=== PATIENT | female | born 1985 | race African-American/Black ===

== ENCOUNTER 2017-06-08 11:34 | Emergency (ER) | payer MEDICAID ==
[~2017-06-08] VITALS: Ht 167.6 cm; Wt 55.0 kg
[2017-06-08] MEDS ORDERED: SODIUM CHLORIDE 0.9% 1,000 ML IV ONE (12:44)
[2017-06-08] MEDS ORDERED: KETOROLAC 30MG/ML VIAL IV STA (12:44)
[2017-06-08] MEDS ORDERED: ONDANSETRON HCL 4MG/2ML VIAL IV STA (12:44)
[2017-06-08] MEDS ORDERED: FAMOTIDINE 20MG/2ML VIAL IV ONE (12:45)
[2017-06-08 13:13] LABS: BASOPHILS % 0.9 % (0.0-2.0); EOSINOPHILS % 1.1 % (0.0-5.0); HEMATOCRIT. 40.6 % (36.0-48.0); HEMOGLOBIN. 13.2 g/dL (12.0-16.0); LYMPHOCYTES % 33.5 % (20.0-50.0); MEAN CORPUSCULAR VOLUME 86.1 fL (81.0-99.0); MEAN PLATELET VOLUME 8.4 fl (7.4-10.4); MONOCYTES % 3.5 % (2.0-8.0); PLATELET 333 x1000/uL (130-400); RED BLOOD CELL COUNT 4.72 mill/uL (4.2-5.4); RED CELL DISTRIBUTION WIDTH 14.3 % (11.6-14.6)
[2017-06-08 13:24] LABS: CHLORIDE 100 mEq/L (98-107)
[2017-06-08] MEDS ORDERED: METOCLOPRAMIDE HCL 10MG/2ML VIAL IV ONE (15:15)
[2017-06-08 16:41] LABS: CLARITY URINE CLEAR (CLEAR); COLOR URINE YELLOW (YELLOW); KETONES URINE 3+ (NEGATIVE); LEUKOCYTE ESTERASE URINE NEGATIVE (NEGATIVE); NITRITE URINE NEGATIVE (NEGATIVE); OCCULT BLOOD URINE 1+ (NEGATIVE); PH URINE 5.5 (4.5-8.0); PROTEIN URINE 3+ (NEGATIVE); SPECIFIC GRAVITY URINE 1.029 (1.005-1.030); UROBILINOGEN URINE 0.2 E.U./dL (0.2-1.0)
[2017-06-08 17:15] LABS: *AMPHETAMINES SCREEN URINE NEGATIVE (NEGATIVE); *BARBITURATES SCREEN URINE NEGATIVE (NEGATIVE); *BENZODIAZEPINES SCREEN URINE NEGATIVE (NEGATIVE); *COCAINE SCREEN URINE NEGATIVE (NEGATIVE); METHADONE URINE SCREEN NEGATIVE (NEGATIVE); OPIATES URINE SCREEN NEGATIVE (NEGATIVE); PHENCYCLIDINE URINE SCREEN NEGATIVE (NEGATIVE)
[2017-06-08 17:17] LABS: CANNABINOID URINE SCREEN PRESUMTIVE POSITIVE (NEGATIVE)
[2017-06-08 18:55] VITALS: BP 111/81
== END 2017-06-08 19:32 | disposition home or self-care (01) ==
LOC: ER 12:35
DX: R10.9 Unspecified abdominal pain (principal); R11.2 Nausea with vomiting, unspecified; R19.7 Diarrhea, unspecified; E10.65 Type 1 diabetes mellitus with hyperglycemia; Z79.4 Long term (current) use of insulin
CPT/HCPCS: 36415; 80053; 80305; 81003; 81025; 82010; 83690; 85025; 96361; 96374; 96375; 99284; J1885; J2405; J2765; J3490; J7030; Z7610

== ENCOUNTER 2018-09-21 10:29 | Inpatient (IN) | payer MEDICAID, MEDICARE ==
[~2018-09-21] VITALS: Ht 167.6 cm; Wt 60.6 kg
[2018-09-21] MEDS ORDERED: SODIUM CHLORIDE 0.9% 1,000 ML IV ONE (11:10)
[2018-09-21] MEDS ORDERED: ONDANSETRON HCL 4MG/2ML INJ IV STA (11:10)
[2018-09-21] MEDS ORDERED: MORPHINE SULFATE 4 MG/ML CPJ (NOT FOR IM USE) IV STA (11:10)
[2018-09-21] MEDS ORDERED: SODIUM CHLORIDE 0.9% 1000ML BAG (SEPSIS BOLUS) IV ONE (11:15)
[2018-09-21 12:03] LABS: CLARITY URINE CLEAR (CLEAR); COLOR URINE YELLOW (YELLOW); KETONES URINE 1+ (NEGATIVE); LEUKOCYTE ESTERASE URINE NEGATIVE (NEGATIVE); NITRITE URINE NEGATIVE (NEGATIVE); OCCULT BLOOD URINE TRACE (NEGATIVE); PH URINE 5.5 (4.5-8.0); PROTEIN URINE 2+ (NEGATIVE); SPECIFIC GRAVITY URINE 1.035 (1.005-1.030); UROBILINOGEN URINE 0.2 E.U./dL (0.2-1.0)
[2018-09-21 12:07] LABS: BG BASE EXCESS -6.2 mmol/L (-2.0-2.0); BG CARBOXYHEMOGLOBIN 0.8 % (0.5-1.5); BG DEOXYHEMOGLOBIN 4.5 % (0.0-5.0); BG HCO3 ACT 18.8 mmol/L (22.0-26.0); BG METHEMOGLOBIN 0.2 % (0.0-1.5); BG OXYGEN SATURATION 95.5 % (92.0-98.5); BG OXYHEMOGLOBIN 94.5 % (94.0-97.0); BG PCO2 35.6 mmHg (35.0-45.0); BG PO2 82.2 mmHg (75.0-100.0); BG SAMPLE SITE RIGHT RADIAL; BG TOTAL HEMOGLOBIN 13.4 g/dL (12.0-18.0); BG VENT MODE ROOM AIR
[2018-09-21 12:07] LABS: CHLORIDE 100 mEq/L (98-107)
[2018-09-21 12:08] LABS: BASOPHILS % 0.8 % (0.0-2.0); EOSINOPHILS % 1.2 % (0.0-5.0); HEMATOCRIT. 37.6 % (36.0-48.0); HEMOGLOBIN. 12.7 g/dL (12.0-16.0); LYMPHOCYTES % 21.9 % (20.0-50.0); MEAN CORPUSCULAR HEMOGLOBIN 30.1 pg (28.0-32.0); MEAN CORPUSCULAR VOLUME 89.1 fL (81.0-99.0); MEAN PLATELET VOLUME 8.9 fl (7.4-10.4); MONOCYTES % 4.9 % (2.0-8.0); NEUTROPHILS % 71.2 % (40.0-76.0); PLATELET 244 x1000/uL (130-400); RED BLOOD CELL COUNT 4.21 mill/uL (4.2-5.4); RED CELL DISTRIBUTION WIDTH 14.7 % (11.6-14.6)
[2018-09-21 12:09] LABS: PROTHROMBIN TIME 10.2 sec (9.6-11.0)
[2018-09-21 12:11] LABS: ETHANOL BLOOD < 10 mg/dL
[2018-09-21 12:12] LABS: C REACTIVE PROTEIN QUANT 7.4 mg/L (0.0-3.0)
[2018-09-21 12:15] LABS: HCG SCREEN NEGATIVE
[2018-09-21 12:16] LABS: BETA HYDROXYBUTYRATE 3.1 mMol/L (0.0-0.3)
[2018-09-21] MEDS ORDERED: INSULIN REGULAR (HUMULIN R) 300UNITS/3ML IV ONE (12:30)
[2018-09-21] MEDS ORDERED: INSULIN GLARGINE UD 100 UNITS/ML SYR SUBCUT ONE (12:30)
[2018-09-21 12:39] LABS: *AMPHETAMINES SCREEN URINE NEGATIVE (NEGATIVE); *BARBITURATES SCREEN URINE NEGATIVE (NEGATIVE); *BENZODIAZEPINES SCREEN URINE NEGATIVE (NEGATIVE); *COCAINE SCREEN URINE NEGATIVE (NEGATIVE); METHADONE URINE SCREEN NEGATIVE (NEGATIVE); OPIATES URINE SCREEN NEGATIVE (NEGATIVE)
[2018-09-21 12:40] LABS: PHENCYCLIDINE URINE SCREEN NEGATIVE (NEGATIVE)
[2018-09-21 12:42] LABS: CANNABINOID URINE SCREEN PRESUMTIVE POSITIVE (NEGATIVE)
[2018-09-21] MEDS ORDERED: LIDOCAINE HCL/PF 1% 2ML VIAL ONE (13:48)
[2018-09-21 16:24] VITALS: BP 138/81
[2018-09-21 16:29] VITALS: BP 138/81
[2018-09-21] MEDS ORDERED: LEVVL SQ (16:40)
[2018-09-21] MEDS ORDERED: MAGNESIUM/ALUMINUM HYDROXIDE/SIMETHICONE 30ML UDC PO PRN (17:15)
[2018-09-21] MEDS ORDERED: DEXTROSE 50% WATER 50ML SYRINGE IV PRN ×2 (17:15)
[2018-09-21] MEDS ORDERED: ONDANSETRON HCL 4MG/2ML INJ IV PRN (17:15)
[2018-09-21] MEDS ORDERED: CLONIDINE 0.1MG TABLET PO PRN (17:15)
[2018-09-21] MEDS ORDERED: ACETAMINOPHEN 650MG/20.3ML UDC GT PRN (17:15)
[2018-09-21] MEDS: BLOOD SUGAR DIAGNOSTIC STRIP TEST SCH ×2 (17:40→21:50)
[2018-09-21] MEDS: HYDROCODONE/ACETAMINOPHEN 5/325MG TABLET PO PRN ×2 (18:15→22:04)
[2018-09-21] MEDS: METOCLOPRAMIDE HCL 5MG TABLET PO SCH ×2 (18:16→22:03)
[2018-09-21] MEDS: INSULIN LISPRO 100 UNITS/ML SUBCUT SCH ×2 (18:25→22:03)
[2018-09-21] MEDS: SODIUM CHLORIDE 0.9% 1,000 ML IV SCH (18:44)
[2018-09-21 20:00] VITALS: BP 113/71
[2018-09-21] MEDS ORDERED: INSULIN GLARGINE UD 100 UNITS/ML SYR SUBCUT SCH (22:00)
[2018-09-22 00:35] VITALS: BP 110/65
[2018-09-22 04:00] VITALS: BP 115/69
[2018-09-22] MEDS: HYDROCODONE/ACETAMINOPHEN 5/325MG TABLET PO PRN ×2 (04:49→13:06)
[2018-09-22] MEDS: METOCLOPRAMIDE HCL 5MG TABLET PO SCH ×2 (06:16→14:00)
[2018-09-22] MEDS: BLOOD SUGAR DIAGNOSTIC STRIP TEST SCH ×2 (06:16→12:40)
[2018-09-22] MEDS: INSULIN LISPRO 100 UNITS/ML SUBCUT SCH ×2 (06:21→13:06)
[2018-09-22 06:44] LABS: BASOPHILS % 1.4 % (0.0-2.0); EOSINOPHILS % 2.7 % (0.0-5.0); HEMATOCRIT. 34.6 % (36.0-48.0); LYMPHOCYTES % 39.7 % (20.0-50.0); MEAN CORPUSCULAR HEMOGLOBIN 30.4 pg (28.0-32.0); MEAN CORPUSCULAR VOLUME 87.8 fL (81.0-99.0); MEAN PLATELET VOLUME 8.6 fl (7.4-10.4); MONOCYTES % 5.9 % (2.0-8.0); NEUTROPHILS % 50.3 % (40.0-76.0); PLATELET 270 x1000/uL (130-400); RED BLOOD CELL COUNT 3.94 mill/uL (4.2-5.4); RED CELL DISTRIBUTION WIDTH 14.1 % (11.6-14.6)
[2018-09-22 07:44] LABS: CHLORIDE 110 mEq/L (98-107)
[2018-09-22 07:54] LABS: PHOSPHORUS 3.6 mg/dL (2.5-4.9)
[2018-09-22 08:00] VITALS: BP 120/80
[2018-09-22 12:00] VITALS: BP 118/75
[2018-09-22] MEDS: SODIUM CHLORIDE 0.9% 1,000 ML IV SCH (13:04)
[2018-09-22 15:48] VITALS: BP 123/88
== END 2018-09-22 17:23 | disposition home or self-care (01) | DRG 420 ==
LOC: ER 10:29 → 7WST 12:32 → EDBEDREQ 12:40 → EDBEDREQSVC 12:40 → EDBEDREQTM 12:41 → ENRESERV 14:08
PROVIDERS: ADMIT Family Medicine Adult Medicine; ATTEND Family Medicine Adult Medicine
DX: E10.10 Type 1 diabetes mellitus with ketoacidosis without coma (principal); E10.621 Type 1 diabetes mellitus with foot ulcer; K31.84 Gastroparesis; L97.429 Non-pressure chronic ulcer of left heel and midfoot with unspecified severity; E10.40 Type 1 diabetes mellitus with diabetic neuropathy, unspecified; L97.529 Non-pressure chronic ulcer of other part of left foot with unspecified severity; E10.42 Type 1 diabetes mellitus with diabetic polyneuropathy; D72.829 Elevated white blood cell count, unspecified; E10.43 Type 1 diabetes mellitus with diabetic autonomic (poly)neuropathy; E86.0 Dehydration; F12.90 Cannabis use, unspecified, uncomplicated; I51.7 Cardiomegaly; Z79.4 Long term (current) use of insulin; Z91.14 Patient's other noncompliance with medication regimen
CPT/HCPCS: 36415; 36600; 71045; 73650; 80048; 80305; 80320; 81025; 82010; 82375; 82805; 82962; 83036; 83605; 83735; 83880; 84100; 84145; 84484; 84703; 85651; 86140; 87077; 93005; 96361; 96372; 96374; 96375; 99291; J1815; J2270; J2405; J3490; J7030; J8597; G0480

== ENCOUNTER 2019-07-25 22:47 | Inpatient (IN) | payer MEDICAID ==
[~2019-07-25] VITALS: Ht 165.1 cm; Wt 55.8 kg
[~2019-07-25 22:47] MED LIST: LEVVL SQ
[2019-07-25] MEDS ORDERED: VISCOUS LIDOCAINE 2% 15 ML UDC PO STA (23:18)
[2019-07-25] MEDS ORDERED: FAMOTIDINE 20MG/2ML VIAL IV STA (23:18)
[2019-07-25] MEDS ORDERED: METOCLOPRAMIDE HCL 10MG/2ML VIAL IV STA (23:18)
[2019-07-25] MEDS ORDERED: MAGNESIUM/ALUMINUM HYDROXIDE/SIMETHICONE 30ML UDC PO STA (23:18)
[2019-07-25] MEDS ORDERED: SODIUM CHLORIDE 0.9% 1,000 ML IV ONE (23:18)
[2019-07-25 23:41] LABS: BASOPHILS % 0.8 % (0.0-2.0); EOSINOPHILS % 0.4 % (0.0-5.0); HEMATOCRIT. 34.9 % (36.0-48.0); HEMOGLOBIN. 11.5 g/dL (12.0-16.0); MEAN CORPUSCULAR HEMOGLOBIN 29.2 pg (28.0-32.0); MEAN CORPUSCULAR VOLUME 88.9 fL (81.0-99.0); MEAN PLATELET VOLUME 8.5 fl (7.4-10.4); MONOCYTES % 3.4 % (2.0-8.0); NEUTROPHILS % 79.4 % (40.0-76.0); PLATELET 313 x1000/uL (130-400); RED BLOOD CELL COUNT 3.93 mill/uL (4.2-5.4); RED CELL DISTRIBUTION WIDTH 14.7 % (11.6-14.6)
[2019-07-25 23:46] LABS: CHLORIDE 105 mEq/L (98-107)
[2019-07-25 23:49] LABS: ETHANOL BLOOD < 10 mg/dL
[2019-07-25 23:54] LABS: BETA HYDROXYBUTYRATE 3.6 mMol/L (0.0-0.3)
[2019-07-26] MEDS ORDERED: SODIUM CHLORIDE 0.9% 1,000 ML IV ONE
[2019-07-26] MEDS ORDERED: POTASSIUM CHLORIDE 20MEQ TABLET SR PO ONE
[2019-07-26 00:13] LABS: CLARITY URINE TURBID (CLEAR); KETONES URINE 2+ (NEGATIVE); LEUKOCYTE ESTERASE URINE 2+ (NEGATIVE); NITRITE URINE POSITIVE (NEGATIVE); OCCULT BLOOD URINE 2+ (NEGATIVE); PROTEIN URINE 2+ (NEGATIVE); SPECIFIC GRAVITY URINE 1.034 (1.005-1.030); UROBILINOGEN URINE 0.2 E.U./dL (0.2-1.0)
[2019-07-26 00:29] LABS: *BARBITURATES SCREEN URINE NEGATIVE (NEGATIVE)
[2019-07-26 00:30] LABS: *AMPHETAMINES SCREEN URINE NEGATIVE (NEGATIVE); *BENZODIAZEPINES SCREEN URINE NEGATIVE (NEGATIVE); *COCAINE SCREEN URINE NEGATIVE (NEGATIVE); METHADONE URINE SCREEN NEGATIVE (NEGATIVE); OPIATES URINE SCREEN NEGATIVE (NEGATIVE); PHENCYCLIDINE URINE SCREEN NEGATIVE (NEGATIVE)
[2019-07-26 00:44] LABS: CANNABINOID URINE SCREEN PRESUMTIVE POSITIVE (NEGATIVE)
[2019-07-26] MEDS ORDERED: CEFTRIAXONE 1 G PREMIX 50 ML IV NR (00:45)
[2019-07-26 00:57] LABS: COLOR URINE RED (YELLOW)
[2019-07-26] MEDS ORDERED: INSULIN REGULAR (DRIP) 100 UNITS in SODIUM CHLORIDE 0.9% 99 ML IV NR ×3 (01:00)
[2019-07-26] MEDS ORDERED: MORPHINE SULFATE 4 MG/ML CPJ (NOT FOR IM USE) IV ONE (01:15)
[2019-07-26] MEDS ORDERED: ONDANSETRON HCL 4MG/2ML INJ IV ONE (01:45)
[2019-07-26 08:51] LABS: CHLORIDE 115 mEq/L (98-107)
[2019-07-26] MEDS ORDERED: ONDANSETRON HCL 4MG/2ML INJ IV PRN (12:30)
[2019-07-26] MEDS ORDERED: MORPHINE SULFATE 2 MG/ML CPJ (NOT FOR IM USE) IV PRN (12:30)
[2019-07-26] MEDS: FAMOTIDINE 20MG/2ML VIAL IV SCH ×2 (12:54→21:17)
[2019-07-26] MEDS ORDERED: DEXTROSE 50% WATER 50ML SYRINGE IV PRN (13:15)
[2019-07-26 14:34] VITALS: BP 121/68
[2019-07-26] MEDS ORDERED: METOCLOPRAMIDE HCL 10MG/2ML VIAL IV PRN (14:45)
[2019-07-26] MEDS ORDERED: MORPHINE SULFATE 2 MG/ML CPJ (NOT FOR IM USE) IV NR ×2 (15:00)
[2019-07-26] MEDS ORDERED: METOCLOPRAMIDE HCL 10MG/2ML VIAL IV NR (15:00)
[2019-07-26] MEDS ORDERED: FAMO-135 MT (15:23)
[2019-07-26] MEDS ORDERED: METO5TAB86 MT (15:23)
[2019-07-26] MEDS ORDERED: LEVO500T2 MT (15:23)
[2019-07-26 16:00] VITALS: BP 124/77
[2019-07-26] MEDS: LEVOFLOXACIN 500MG PREMIX 100 ML IV SCH (17:02)
[2019-07-26] MEDS: SODIUM CHLORIDE 0.9% 1,000 ML IV SCH (17:03)
[2019-07-26] MEDS: BLOOD SUGAR DIAGNOSTIC STRIP TEST SCH ×2 (17:34→21:30)
[2019-07-26] MEDS: INSULIN LISPRO 100 UNITS/ML SUBCUT SCH ×3 (17:34→22:56)
[2019-07-26 19:45] LABS: HCG SCREEN NEGATIVE
[2019-07-26] MEDS: MORPHINE SULFATE 2 MG/ML CPJ (NOT FOR IM USE) IV PRN (19:46)
[2019-07-26 20:00] VITALS: BP 124/67
[2019-07-27] VITALS: BP 120/67
[2019-07-27] MEDS: METOCLOPRAMIDE HCL 10MG/2ML VIAL IV SCH ×3 (00:33→12:00)
[2019-07-27] MEDS: MORPHINE SULFATE 2 MG/ML CPJ (NOT FOR IM USE) IV PRN ×2 (00:34→06:31)
[2019-07-27 04:00] VITALS: BP 127/76
[2019-07-27] MEDS: SODIUM CHLORIDE 0.9% 1,000 ML IV SCH ×3 (05:34→15:00)
[2019-07-27] MEDS: INSULIN LISPRO 100 UNITS/ML SUBCUT SCH ×3 (06:26→17:50)
[2019-07-27] MEDS: BLOOD SUGAR DIAGNOSTIC STRIP TEST SCH ×2 (06:30→18:00)
[2019-07-27 08:00] VITALS: BP 118/69
[2019-07-27] MEDS: FAMOTIDINE 20MG/2ML VIAL IV SCH (09:31)
[2019-07-27] MEDS ORDERED: INSULIN LISPRO 100 UNITS/ML SUBCUT SCH (11:15)
[2019-07-27 12:00] VITALS: BP 135/80
[2019-07-27] MEDS ORDERED: MEDICATION NOT ON FORMULARY EA (Insulin Detemir (Levemir) 20 UNIT) SQ SCH (12:00)
[2019-07-27] MEDS ORDERED: INSULIN GLARGINE UD 100 UNITS/ML SYR SUBCUT NR (14:00)
[2019-07-27] MEDS: LEVOFLOXACIN 500MG PREMIX 100 ML IV SCH (14:26)
[2019-07-27] MEDS ORDERED: METO5TAB86 MT (14:58)
[2019-07-27 16:00] VITALS: BP 130/76
[2019-07-27 16:19] LABS: HEMATOCRIT 30.1 % (36.0-48.0); MEAN CORPUSCULAR HEMOGLOBIN 29.1 pg (28.0-32.0); MEAN CORPUSCULAR VOLUME 87.3 fL (81.0-99.0); PLATELET 279 x1000/uL (130-400); RED BLOOD CELL COUNT 3.45 mill/uL (4.2-5.4); RED CELL DISTRIBUTION WIDTH 14.9 % (11.6-14.6)
[2019-07-27 16:23] LABS: CHLORIDE 112 mEq/L (98-107)
[2019-07-27 17:39] VITALS: BP 130/79
[2019-07-28] MEDS ORDERED: INSULIN GLARGINE UD 100 UNITS/ML SYR SUBCUT SCH (10:00)
== END 2019-07-27 18:50 | disposition home or self-care (01) | DRG 249 ==
LOC: ER 22:47 → 7WST 07-26 00:35 → EDBEDREQ 07-26 00:38 → EDBEDREQSVC 07-26 00:57 → EDBEDREQTM 07-26 11:04 → EDBEDREQ 07-26 11:04 → EDBEDREQSVC 07-26 11:04 → ENRESERV 07-26 11:08 → SUPCPDRO 07-26 12:01 → 6WST 07-27 12:36
PROVIDERS: ADMIT Internal Medicine; ATTEND Internal Medicine
DX: A05.9 Bacterial foodborne intoxication, unspecified (principal); E10.10 Type 1 diabetes mellitus with ketoacidosis without coma; E10.649 Type 1 diabetes mellitus with hypoglycemia without coma; K31.84 Gastroparesis; E10.43 Type 1 diabetes mellitus with diabetic autonomic (poly)neuropathy; E86.0 Dehydration; F12.90 Cannabis use, unspecified, uncomplicated; N39.0 Urinary tract infection, site not specified; Z79.4 Long term (current) use of insulin
CPT/HCPCS: 36415; 71045; 74176; 76700; 80048; 80053; 80305; 80320; 81003; 82010; 82962; 83036; 83605; 84703; 85025; 85027; 93005; 99291; J0696; J1815; J1956; J2270; J2405; J2765; J3490; J7030; J7050; G0480

== ENCOUNTER 2020-04-08 22:53 | Emergency (ER) | payer MEDICAID, OTHER ==
[~2020-04-08] VITALS: Ht 165.1 cm; Wt 64.0 kg
[~2020-04-08 22:53] MED LIST changes: +FAMO-135 MT; +LEVO500T2 MT; +METO5TAB86 MT
[2020-04-09] MEDS ORDERED: KETOROLAC 30MG/ML VIAL IM STA (00:34)
[2020-04-09 03:55] VITALS: BP 121/87
== END 2020-04-09 03:57 | disposition home or self-care (01) ==
LOC: ER 22:53
DX: S39.012A Strain of muscle, fascia and tendon of lower back, initial encounter (principal); S29.012A Strain of muscle and tendon of back wall of thorax, initial encounter; V49.40XA Driver injured in collision with unspecified motor vehicles in traffic accident, initial encounter; Y93.89 Activity, other specified; Y92.89 Other specified places as the place of occurrence of the external cause; E11.9 Type 2 diabetes mellitus without complications; I25.10 Atherosclerotic heart disease of native coronary artery without angina pectoris; Z95.1 Presence of aortocoronary bypass graft; F12.90 Cannabis use, unspecified, uncomplicated; R03.0 Elevated blood-pressure reading, without diagnosis of hypertension
CPT/HCPCS: 72070; 72100; 81025; 96372; 99284; J1885